=== PATIENT | female | born 1995 | race Two or more races ===

== ENCOUNTER 2018-08-02 12:46 | Emergency (ER) | payer MEDICAID, OTHER ==
[~2018-08-02] VITALS: Ht 165.1 cm; Wt 47.2 kg
[2018-08-02 13:14] VITALS: BP 120/70
[2018-08-02 14:40] LABS: Urine Bacteria NONE SEEN /hpf (None Seen); Urine Blood Negative /uL (Negative); Urine Mucus FEW (None Seen); Urine Specific Gravity 1.023 (1.001-1.035); Urine WBC 2 /hpf (0 - 5)
[2018-08-02] MEDS ORDERED: KETOROLAC TROMETH 60MG/2ML VIAL IM ONE (16:15)
[2018-08-02] MEDS ORDERED: IBUPROFEN 800 MG TAB PO ONE (16:15)
== END 2018-08-02 16:22 | disposition home or self-care (01) ==
LOC: ER 12:50
DX: M54.5 Low back pain (principal); J45.909 Unspecified asthma, uncomplicated; E07.9 Disorder of thyroid, unspecified; V49.49XA Driver injured in collision with other motor vehicles in traffic accident, initial encounter; Y93.89 Activity, other specified; Y99.8 Other external cause status; Y92.89 Other specified places as the place of occurrence of the external cause
CPT/HCPCS: 72100; 81001; 81025; 99285; J1885